=== PATIENT | female | born 1945 | race Hispanic/Latino ===

== ENCOUNTER 2016-09-30 17:10 | Emergency (ER) | payer MEDICARE, BC ==
[2016-09-30 17:16] VITALS: BMI 23.5
[2016-09-30 17:39] VITALS: TEMP 97.7
[2016-09-30 17:53] LABS: BASO # 0.03 K/mm3 (0.0-2.0); BASO % 0.5 % (0.0-3.0); EOS # 0.3 (0.0-0.7); GRAN # 3.33 (1.4-6.5); GRAN % 57.7 % (50.0-68.0); HEMOGLOBIN 14.7 g/dL (12.0-16.0); LYMPH # 1.5 (1.2-3.4); LYMPH % 26.7 % (22.0-35.0); MEAN CELL VOLUME 95.1 fl (80.0-105.0); MEAN CORPUSCULAR HEMOGLOBIN 34.1 pg (25.0-35.0); MEAN CORPUSCULAR HGB CONC 35.9 g/dl (31.0-37.0); MEAN PLATELET VOLUME 10.1 fl (7.0-11.0); MONO # 0.6 (0.1-0.6); MONO % 10.1 % (1.0-6.0); PLATELET COUNT 221 10^3/uL (120.0-450.0); RBC 4.31 10^6/uL (3.5-6.1); RED CELL DISTRIBUTION WIDTH 12.7 % (11.5-14.5); WHITE BLOOD COUNT 5.8 10^3/ul (4.5-11.0)
--- NOTE | 2016-09-30 17:53 | ED PDOC ---
Arrival/HPI - General Chief Complaint: Chest Pain Time Seen by Provider: 09/30/16 17:24 Historian: Patient - History of Present Illness Narrative History of Present Illness (Text): 09/30/16 17:52 A 71 year old female, whose past medical history includes mitral valve prolapse , hypertension and hyperlipidemia, presents to the emergency department complaining of chest pain prior to arrival. Patient reports while visiting her daughter in ICU she experienced 2 episodes of sharp midsternal chest pain and dizziness that was associated with some numbness in her legs. She states her symptoms spontaneously resolved and currently denies any pain or discomfort. Patient denies any fever, chills, nausea, vomiting, abdominal pain, shortness of breath or any other complaints. Patient denies history of diabetes or tobacco use. Patients last stress test was more than 10 years ago. 09/30/16 21:47 Time/Duration: Prior to Arrival Symptom Course: Resolved Quality: Other Context: Other Past Medical History - Provider Review Nursing Documentation Reviewed: Yes - Infectious Disease Hx of Infectious Diseases: None - Cardiac Hx Cardiac Disorders: Yes Hx Hypertension: Yes - Pulmonary Hx Respiratory Disorders: No - Neurological Hx Neurological Disorder: Yes Hx Multiple Sclerosis: Yes - HEENT Hx HEENT Disorder: Yes Other/Comment: glasses - Renal Hx Renal Disorder: No - Endocrine/Metabolic Hx Endocrine Disorders: No - Hematological/Oncological Hx Cancer: Yes (L breast cancer with lymph removed) - Integumentary Hx Dermatological Disorder: No - Musculoskeletal/Rheumatological Hx Musculoskeletal Disorders: No - Gastrointestinal Hx Gastrointestinal Disorders: No - Genitourinary/Gynecological Hx Genitourinary Disorders: No - Psychiatric Hx Psychophysiologic Disorder: Yes Hx Anxiety: Yes Hx Substance Use: No - Surgical History Hx Hysterectomy: Yes Other/Comment: L lymph removed, L breast CA, L limb ALERT - Anesthesia Hx Anesthesia: Yes Hx Anesthesia Reactions: No Family/Social History - Physician Review Nursing Documentation Reviewed: Yes Family/Social History: No Known Family HX Smoking Status: Never Smoked Hx Alcohol Use: No Hx Substance Use: No Allergies/Home Meds Allergies/Adverse Reactions: Allergies No Known Allergies Allergy (Verified 09/30/16 17:16) Home Medications: Home Meds Medication Instructions Recorded Confirmed Atenolol [Tenormin] 25 mg PO DAILY 09/30/16 09/30/16 Atorvastatin [Lipitor] 20 mg PO DAILY 09/30/16 09/30/16 Review of Systems - Physician Review All systems were reviewed & negative as marked: Yes - Review of Systems Constitutional: absent: Fevers, Night Sweats Eyes: absent: Vision Changes ENT: absent: Hearing Changes Respiratory: absent: SOB, Cough, Sputum, Wheezing Cardiovascular: Chest Pain. absent: Edema, Calf Pain, MCDONALD, Orthopnea, Syncope Gastrointestinal: absent: Abdominal Pain, Constipation, Diarrhea, Nausea, Vomiting Genitourinary Female: absent: Dysuria Musculoskeletal: absent: Other (LE numbness) Neurological: Dizziness. absent: Gait Changes Endocrine: absent: Diaphoresis Physical Exam Vital Signs Reviewed: Yes Vital Signs Temp Pulse Resp BP Pulse Ox 09/30/16 21:42 76 16 136/88 97 09/30/16 18:48 65 18 140/88 97 09/30/16 17:30 97.7 F 57 L 20 151/90 H 98 Temperature: Afebrile Blood Pressure: Hypertensive Pulse: Bradycardic Respiratory Rate: Normal Appearance: Positive for: Well-Appearing, Non-Toxic, Comfortable Pain Distress: None Mental Status: Positive for: Alert and Oriented X 3 - Systems Exam Head: Present: Atraumatic, Normocephalic Pupils: Present: PERRL Extroacular Muscles: Present: EOMI Conjunctiva: Present: Normal Mouth: Present: Moist Mucous Membranes Pharnyx: No: ERYTHEMA, EXUDATE, TONSILS ENLARGED Neck: Present: Normal Range of Motion Respiratory/Chest: Present: Clear to Auscultation, Good Air Exchange. No: Respiratory Distress, Accessory Muscle Use Cardiovascular: Present: Regular Rate and Rhythm, Normal S1, S2. No: Murmurs Abdomen: Present: Normal Bowel Sounds. No: Tenderness, Distention, Peritoneal Signs Back: Present: Normal Inspection Upper Extremity: Present: Normal Inspection, NORMAL PULSES (Radial pulses equal bilaterally). No: Cyanosis, Edema Lower Extremity: Present: Normal Inspection, NORMAL PULSES (Distal pulses equal bilaterally), Neurovascularly Intact. No: Edema, CALF TENDERNESS Neurological: Present: GCS=15, CN II-XII Intact, Speech Normal Skin: Present: Warm, Dry, Normal Color. No: Rashes Psychiatric: Present: Alert, Oriented x 3, Normal Insight, Normal Concentration Medical Decision Making ED Course and Treatment: 09/30/16 17:52 Impression: A 71 year old female with chest pain and dizziness, which have spontaneous resolved. Patient currently denies any pain or discomfort. Plan: -- Chest xray -- EKG -- Labs -- Reassess and disposition Progress Notes: EKG shows NSR at 57 BPM with T-wave inversions in lead III and V2-V4 with no 12 lead prior EKG for comparison. Interpreted by me. 09/30/16 19:02 Cxray negative. Trop x 1 negative Report Date: 09/30/16 21:13 Dictated and Authenticated by: Kaitlin Antoine MD EXAM: CT Angiography Chest With Intravenous Contrast IMPRESSION: No acute findings. Lung nodules as above. ---- EXAM: CT Chest With Intravenous Contrast, CT Abdomen and Pelvis With Intravenous Contrast IMPRESSION: There are borderline enlarged lymph nodes noted in the gastrohepatic region measuring 1.4 cm. Possibility of an occult GI lesion is not excluded. 09/30/16 21:41 Patient was made aware of CT result. She has multiple cardiac risk factors- htn , hyperlipidemia, age and abnormal ekg with no recent stress test. I informed patient that I wanted her to stay in hospital for further cardiac testing. Patient refusing but reports she will follow-up with her inspector aide in [facility]. The patient is choosing to leave against medical advice. I have personally explained to the patient that choosing to do so may result in permanent bodily harm or . I have discussed at great length that without further evaluation and monitoring there may be unforeseen circumstances and/or deterioration causing permanent bodily harm or as a result of their choice. The patient is alert, oriented, and shows the mental capacity to make clear decisions regarding the patients health care at this time. The patient continues to wish to leave against medical advice. In light of the patients decision to leave against medical advice, follow-up has been arranged and the patient is aware of the importance to following up as instructed. The patient has been advised that they should return to the emergency room immediately if they change their mind at any time, or if their condition begins to change or worsen in any way. 09/30/16 21:48 - Lab Interpretations Lab Results: 09/30/16 17:30 09/30/16 17:30 Lab Results 09/30/16 17:30: Sodium 141, Potassium 3.5 L, Chloride 102, Carbon Dioxide 29, Anion Gap 14, BUN 18, Creatinine 0.6, Est GFR ( Amer) > 60, Est GFR (Non- Af Amer) > 60, Random Glucose 93, Calcium 9.0, Total Bilirubin 2.9 H, AST 43 H, ALT 37, Alkaline Phosphatase 82, Total Creatine Kinase 117, Troponin I < 0.01, Total Protein 8.3, Albumin 4.4, Globulin 4.0, Albumin/Globulin Ratio 1.1 09/30/16 17:30: PT 11.5, INR 1.06, APTT 28.5 09/30/16 17:30: WBC 5.8, RBC 4.31, Hgb 14.7, Hct 41.0, MCV 95.1, MCH 34.1, MCHC 35.9, RDW 12.7, Plt Count 221, MPV 10.1, Gran % 57.7, Lymph % (Auto) 26.7, [place] % (Auto) 10.1 H, Eos % (Auto) 5.0, Baso % (Auto) 0.5, Gran # 3.33, Lymph # 1.5, [place] # 0.6, Eos # 0.3, Baso # 0.03 I have reviewed the lab results: Yes - RAD Interpretation Radiology Orders: 09/30/16 17:24 CHEST PORTABLE [RAD] Stat 09/30/16 19:01 ANGIOGRAPHY DISECTION PROTOCOL [CT] Stat - Medication Orders Current Medication Orders: Discontinued Medications Iohexol (Omnipaque 350 100 Ml) Confirm Administered Dose 350 mg .ROUTE .[facility] ONE Stop: 09/30/16 19:34 - Scribe Statement The provider has reviewed the documentation as recorded by the Trey Giordano Provider Scribe Attestation: All medical record entries made by the Kayleyibjoyce were at my direction and personally dictated by me. I have reviewed the chart and agree that the record accurately reflects my personal performance of the history, physical exam, medical decision making, and the department course for this patient. I have also personally directed, reviewed, and agree with the discharge instructions and disposition. Disposition/Present on Arrival - Present on Arrival Any Indicators Present on Arrival: No History of DVT/PE: No History of Uncontrolled Diabetes: No Urinary Catheter: No History of Decub. Ulcer: No History Surgical Site Infection Following: None - Disposition Have Diagnosis and Disposition been Completed?: Yes Diagnosis: Chest pain Disposition: AGAINST MEDICAL ADVICE Disposition Time: 18:58 Condition: FAIR Discharge Instructions (ExitCare): Chest Pain (ED) Additional Instructions: Return to emergency room if you desire care. Follow up with your PMD and inspector aide within 2 days. Your cat scan shows "borderline enlarged lymph nodes noted in the gastrohepatic region measuring 1.4 cm. Possibility of an occult GI lesion is not excluded." Follow-up with your PMD for GI referral Referrals: [facility] Venancio Aly, [Primary Care Provider] - Follow up with primary Ayad RODRIGUEZ,MD Tomás [Medical Doctor] - Follow up with primary Waqar Wild MD [Staff Provider] - Follow up with primary Forms: [facility] (Malay)
[2016-09-30 18:01] LABS: ALB/GLOB RATIO 1.1 (1.1-1.8); ALBUMIN 4.4 g/dL (3.0-4.8); ALT/SGPT 37 U/L (7-56); AST/SGOT 43 U/L (15-39); BLOOD UREA NITROGEN 18 mg/dL (7-21); GFR AFRICAN-AMERICAN > 60; GFR NON-AFRICAN AMERICAN > 60; INR 1.06 (0.93-1.08); PARTIAL THROMBOPLASTIN TIME 28.5 Seconds (23.7-30.8); PROTHROMBIN TIME 11.5 Seconds (9.9-11.8)
[2016-09-30 18:14] LABS: TROPONIN I < 0.01 ng/mL
--- NOTE | 2016-09-30 18:46 | RAD ---
HISTORY: Chest pain. Portable study 17:47. COMPARISON: No prior. FINDINGS: LUNGS: No active pulmonary disease. PLEURA: No significant pleural effusion identified, no pneumothorax apparent. CARDIOVASCULAR: No radiographic findings to suggest acute or significant cardiovascular disease. OSSEOUS STRUCTURES: No significant abnormalities. VISUALIZED UPPER ABDOMEN: Normal. OTHER FINDINGS: None. IMPRESSION: No active disease.
[2016-09-30 19:00] VITALS: O2SAT 97
[2016-09-30] MEDS ORDERED: Iohexol 350 MG/100 ML VIAL ONE (19:33)
[2016-09-30 21:43] VITALS: BP 136/88; PULSE 76; RESP 16
--- NOTE | 2016-09-30 23:36 | CARD ---
APPROVED REPORT EKG Measurement Heart [id number] <Conclusion> Sinus bradycardia Possible Left atrial enlargement Left ventricular hypertrophy ST & T wave abnormality, consider anterior ischemia Abnormal ECG
--- NOTE | 2016-10-01 08:47 | CT ---
PROCEDURE: CT Angiography Chest, Abdomen and Pelvis with and without intravenous contrast HISTORY: chest pain with dizziness and leg pain COMPARISON: None. TECHNIQUE: Contiguous axial images of the chest, abdomen and pelvis were obtained in the phase of aortic enhancement. A noncontrast enhanced CT of the chest was also obtained to evaluate for possible intramural thrombus. Coronal and sagittal reformats were generated. IV dose administered: 100 mL of Omnipaque 350 administered intravenously Radiation dose: Total exam DLP = 1340 mGy-cm. This CT exam was performed using one or more of the following dose reduction techniques: Automated exposure control, adjustment of the mA and/or kV according to patient size, and/or use of iterative reconstruction technique. FINDINGS: CT ANGIOGRAPHY OF THE CHEST WITH & WITHOUT CONTRAST: AORTA (CHEST AND ABDOMEN): The thoracic and abdominal aorta are without dissection or rupture. No intramural thrombus identified in the thoracic aorta on the non-contrast ct of the chest. The ascending aorta is borderline prominent/top-normal at 4.0cm. The descending is 3 cm. These are at maximum dimension - main pulmonary artery level. The celiac axis, superior mesenteric artery, inferior mesenteric artery and the renal arteries appear patent. There is some minimal infrarenal aortic atherosclerotic vascular calcifications and trace mural irregularity. No large mural thrombus seen. No gross out pouching aortic ulcerating aneurysm The pelvic arteries are unremarkable. LUNGS: No consolidation. There is a 4 mm pleural-based solid-appearing nodule left lower lobe -contiguous with a thin fibrous like strand as per axis series 5, image 82. This may be postinflammatory appear Here, regional minimal left lower lobe bronchiectatic changes are also suggested . . The slight changes in left lung parenchymal attenuation are attributed to hypo ventilatory/ and or dependent changes. Some minimal post inflammatory changes here are also possible. No suspicious appearing pulmonary nodules or masses appreciated MEDIASTINUM: Unremarkable. Borderline prominent ascending aorta measuring up to 4.0cm. TheAnd pulmonary arterial trunk. Is within normal limits No aortic dissection. Mild cardiomegaly. No pericardial fusion LYMPH NODES: Unremarkable. PLEURA: Unremarkable. No pneumothorax. No pleural fluid. BONES: No fracture or lytic lesion. OTHER FINDINGS: None. CT ANGIOGRAPHY OF THE ABDOMEN AND PELVIS WITH CONTRAST: LIVER: Diffuse fatty infiltration. No gross lesion or ductal dilatation. GALLBLADDER AND BILE DUCTS: Unremarkable. PANCREAS: No pancreatic mass. A few peripancreatic/gastrohepatic regional lymph nodes measuring up to 1.3 cm in longest diameter noted. Nonspecific. No gross lesion or ductal dilatation. SPLEEN: Unremarkable. ADRENALS: Unremarkable. No mass. KIDNEYS AND URETERS: Unremarkable. No hydronephrosis. No solid mass. VASCULATURE: Unremarkable. No aortic aneurysm. STOMACH AND BOWEL: Unremarkable. No obstruction. No gross mural thickening. APPENDIX: Normal appendix. PERITONEUM: Unremarkable. No free fluid. No free air. LYMPH NODES: Unremarkable. No enlarged lymph nodes. BLADDER: Unremarkable. REPRODUCTIVE: Unremarkable. BONES: No acute fracture. Degenerative disc disease and lumbar spondylosis OTHER FINDINGS: None. IMPRESSION: Ascending aorta is top normal/ borderline prominent 4.0 cm. No dissection. No large appearing mural thrombus. Cardiomegaly with out pericardial effusion Probable postinflammatory changes left lower lobe here minimal regional bronchiectatic changes noted. Nonspecific peripancreatic/gastrohepatic lymph nodes. Preliminary report provided by Rosa M rudd
== END 2016-09-30 21:43 | disposition left against medical advice (07) ==
LOC: ED 17:10
DX: R07.9 Chest pain, unspecified (principal)
CPT/HCPCS: 71010; 71275; 74175; 80053; 82550; 84484; 85025; 85610; 85730; 93005; 99284; Q9967